=== PATIENT | female | born 2005 | race Two or more races ===

== ENCOUNTER 2024-07-11 23:31 | Emergency (ER) | payer MEDICAID, SELFPAY ==
[2024-07-11 23:34] VITALS: O2SAT 99
[2024-07-11 23:46] VITALS: BP 126/87; PULSE 88; RESP 20; TEMP 37; O2SAT 99
[2024-07-11 23:47] VITALS: BMI 19.3
[2024-07-12] MEDS: DEXAMETHASONE SOD PHOS INJ 10 MG/ML VIAL PO (00:04)
--- NOTE | 2024-07-12 00:38 | PD.ASTHM ---
ED Asthma RME/HPI General Chief Complaint: General Adult/Misc Complain Stated Complaint: SOB Time Seen by Provider: 07/11/24 23:59 Arrival date/time: 07/11/24 23:31 18F with history of asthma presents to ED with several days of cough and SOB. 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 Limitations: no limitations Related Data Previous Rx's ?Medication ?Instructions ?Recorded ipratropium bromide 17 2 puff inhalation BID PRN 07/12/24 mcg/actuation HFA aerosol inhaler shortness of breath or wheezing (Atrovent HFA) #12.9 grams Allergies Allergy/AdvReac Type Severity Reaction Status Date / Time No Known Allergies Allergy Verified 07/11/24 23:34 Review of Systems Review of Systems Systems Reviewed: All systems reviewed, normal except as documented Constitutional Constitutional: Reports system reviewed and no additional complaints, except as documented, Denies fever(s) and Denies headache(s) ENT Ears, Nose, Mouth, and Throat: Denies disequilibrium and Denies headache(s) Cardiovascular Cardiovascular: Reports system reviewed and no additional complaints, except as documented, Denies chest pain and Reports dyspnea Respiratory Respiratory: Reports system reviewed and no additional complaints, except as documented, Reports as per HPI, Reports cough and Reports dyspnea Gastrointestinal Gastrointestinal: Reports system reviewed and no additional complaints, except as documented, Denies abdominal pain, Denies nausea and Denies vomiting Neurologic Neurologic: Reports system reviewed and no additional complaints, except as documented, Denies confusion, Denies disequilibrium and Denies headache(s) Psychiatric Psychiatric: Denies confusion Past Medical History Social History SMOKING STATUS: Never smoker ED Exam General Limitations: Present no limitations General appearance: Present alert and in no apparent distress Head Head exam: Present atraumatic Eye Eye exam: Present normal appearance, PERRL and EOMI ENT ENT exam: Present normal exam, normal oropharynx and mucous membranes moist Neck Neck exam: Present normal inspection, full ROM and trachea midline Chest Chest inspection: Present normal inspection and symmetric chest wall rise Respiratory Respiratory exam: Present normal lung sounds bilaterally Cardiovascular Cardiovascular exam: Present regular rate, normal rhythm and normal heart sounds Abdominal Exam Abdominal exam: Present soft and normal bowel sounds Extremities Exam Extremities exam: Present normal inspection and full ROM Back Exam Back exam: Present normal inspection and full ROM Neurological Exam Neurological exam: Present alert, oriented X3 and CN II-XII intact Psychiatric Psychiatric exam: Present normal affect and normal mood Skin Skin exam: Present warm, dry, intact and normal color Course Quality Measures none Orders Category Date Time Status Bedside Influenza A&B Antigen Test NOW Care 07/11/24 23:59 Completed Dexamethasone Inj [Decadron Inj] Med 07/11/24 23:59 Discontinued 10 mg PO X1 ONE Vital Signs Vital signs: Vital Signs Temperature 98.6 F 07/11/24 23:46 Pulse Rate 88 07/11/24 23:46 Respiratory Rate 20 07/11/24 23:46 Blood Pressure 126/87 H 07/11/24 23:46 Pulse Oximetry (%) 99 07/11/24 23:46 Oxygen Delivery Method Room Air 07/11/24 23:46 Asthma MDM Narrative MDM Narrative:: 18F with history of asthma presents to ED with several days of cough and SOB. 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 Physical exam reveals clear ENT and lungs. Normal WOB. Patient is afebrile, calm, and alert. Swabs neg. Likely viral URI causing mild asthma exacerbation. Meds improved symptoms. Possible panic/anxiety attack as well. Refilled Atrovent as requested. Patient data External records reviewed:: None Clinical information provided by:: patient Social determinants that could affect healthcare access:: none Patient has the following chronic illnesses:: asthma How is presenting disease/condition affected by chronic disease/condition?: exacerbated by Evaluation data The following diagnostics were reviewed and interpreted by me:: lab results Lab and/or radiology exams considered but not ordered:: ordered Interpretation Summary: above Medications / Prescriptions Medications or Prescriptions considered but not ordered:: ordered Medication administrations:: Medication Administration History Discontinued Medications Dexamethasone Sodium Phosphate (Dexamethasone Sod Phos Inj 10 Mg/Ml Vial) 10 mg PO X1 ONE Stop: 07/12/24 00:00 Last Admin: 07/12/24 00:04 Dose: 10 mg Documented By: Consultations Consultation(s) initiated? (list below): No Diagnosis Differential diagnosis asthma: Acute exacerbation, Status asthmaticus, Acute asthmatic bronchitis, PE, Pneumonia, COPD exacerbation, Pulmonary edema systolic, Pulmonary edema dystolic, ARDS, Pneumothorax and Foreign body in trachea Most likely diagnosis given after review of the tests above:: URI, asthma exacerbation Admission Indicated Admission indicated?: not indicated Admission Request Was there a request for admission?: No Disposition Plan Disposition Plan: Discharge Discharge Attestation Discharge Attestation: The patient and all family members were given an opportunity to ask questions and understood the discharge instructions. Discharge instructions specifically effects, indications for sooner follow up or return to the emergency department, and the expected course of current diagnosis. Patient condition: Stable Discharge Plan Plan Patient Disposition: HOME (Self Care) Disposition Comment: Stable Prescriptions/Referrals Prescriptions/Med Rec: New Atrovent HFA 17 mcg/actuation HFA aerosol inhaler 2 puff inhalation BID PRN (Reason: shortness of breath or wheezing) Qty: 12.9 0RF Referrals: No Primary/Family,Physician [Primary Care Provider] - In 1 week Problem List Clinical Impression: Asthma exacerbation, URI (upper respiratory infection) Patient/Caregiver Discharge Instructions Additional Instructions: Please follow-up with PCP within 24-48 hours and return immediately if symptoms worsen. Ibuprofen/Tylenol can be used simultaneously for greater fever/pain control. Benadryl is good for cough, congestion, and sleep. Print Language: Romanian Stand Alone Forms: Patient Portal Info Letter CAROLANN/SHAUN Supervising Physician CAROLANN/SHAUN Supervising Physician: Dr. Bolton
[2024-07-12 02:05] VITALS: BP 119/74; PULSE 77; RESP 16; TEMP 36.9; O2SAT 100
[2024-07-12 03:10] VITALS: RESP 18
== END 2024-07-12 03:11 | disposition home or self-care (01) ==
PROVIDERS: Emergency Provider Emergency Medicine
DX: J06.9 Acute upper respiratory infection, unspecified (principal); J45.901 Unspecified asthma with (acute) exacerbation
CPT/HCPCS: 87400; 99283; J1100